=== PATIENT | female | born 1930 | race Native Hawaiian/Other Pacific Islander ===

== ENCOUNTER 2017-04-15 07:51 | Day surgery (SDC) | payer MEDICARE ==
[2017-04-15] MEDS ORDERED: Bupivacaine HCl 0.25% PF (10 ml) Inj ONE (09:39)
[2017-04-15] MEDS ORDERED: Iohexol 240 (50 ml) ONE (09:40)
[2017-04-15] MEDS ORDERED: MethylPREDNISolone Depo 40 mg/ml Inj ONE ×2 (09:40)
[2017-04-15] MEDS ORDERED: Propofol 10 mg/ml Inj (20 ML) ONE (09:44)
[2017-04-15] MEDS ORDERED: Lactated Ringer's 1,000 ML IV ONE (09:45)
[2017-04-15] MEDS ORDERED: Lidocaine Hydrochloride 5 ML INJ ONE (09:45)
[2017-04-15 12:56] VITALS: RESP 20; O2SAT 99
[2017-04-15 13:00] VITALS: BP 125/54; PULSE 54; TEMP 97.8
--- NOTE | 2017-04-16 10:45 | RAD ---
PROCEDURE: Intraoperative Fluoroscopy. HISTORY: LUMBAR RADICULOPATHY FINDINGS: Fluoroscopic assistance was provided for L5-S1 nerve block. Please
== END 2017-04-15 11:05 | disposition home or self-care (01) ==
LOC: C.SDS 07:51
PROVIDERS: ATTEND Anesthesiology Pain Medicine
DX: M51.16 Intervertebral disc disorders with radiculopathy, lumbar region (principal)
CPT/HCPCS: 64493; 76000; J1030; J2704; J7120; Q9966